=== PATIENT | male | born 1955 | race Caucasian/White ===

== ENCOUNTER 2023-04-16 06:00 | Outpatient (CLI) | payer MEDICARE, OTHER, BC, SELFPAY | END 2023-04-16 23:59 | disposition home or self-care (01) | LOC: SPT 04-17 08:51 | PROVIDERS: PCP Family Medicine; Visit Provider Nurse Practitioner | DX: Z46.89 Encounter for fitting and adjustment of other specified devices (principal); M17.12 Unilateral primary osteoarthritis, left knee | CPT/HCPCS: 97760; 99204; L1851 ==

== ENCOUNTER → 2023-04-16 12:55 | Outpatient (BNVA) | payer MEDICARE, OTHER, BC, SELFPAY | PROVIDERS: PCP Family Medicine; Referring Provider Family Medicine; Visit Provider Nurse Practitioner | DX: M17.12 Unilateral primary osteoarthritis, left knee; M25.562 Pain in left knee; G89.29 Other chronic pain; Z46.89 Encounter for fitting and adjustment of other specified devices | CPT/HCPCS: 73560; 73565; 97760; 99204; L1851 ==

== ENCOUNTER → 2023-05-02 10:48 | Outpatient (BNVA) | payer MEDICARE, OTHER, BC, SELFPAY | PROVIDERS: PCP Family Medicine; Visit Provider Nurse Practitioner | DX: M18.0 Bilateral primary osteoarthritis of first carpometacarpal joints (principal) | CPT/HCPCS: 20600; 73140; 99214; J2795; J3301 ==

== ENCOUNTER → 2023-08-15 07:52 | Outpatient (BNVA) | payer MEDICARE, OTHER, BC, SELFPAY | PROVIDERS: PCP Family Medicine; Visit Provider Nurse Practitioner | DX: M17.12 Unilateral primary osteoarthritis, left knee (principal); Z71.89 Other specified counseling | CPT/HCPCS: 20610; 99214 ==

== ENCOUNTER → 2023-08-22 08:04 | Outpatient (BNVA) | payer MEDICARE, OTHER, BC, SELFPAY | PROVIDERS: PCP Family Medicine; Visit Provider Nurse Practitioner | DX: M17.12 Unilateral primary osteoarthritis, left knee (principal) | CPT/HCPCS: 20610 ==

== ENCOUNTER → 2023-09-05 08:29 | Outpatient (BNVA) | payer MEDICARE, OTHER, BC, SELFPAY | PROVIDERS: PCP Family Medicine; Visit Provider Nurse Practitioner | DX: M17.12 Unilateral primary osteoarthritis, left knee | CPT/HCPCS: 20610; J7321 ==

== ENCOUNTER → 2023-09-19 08:17 | Outpatient (BNVA) | payer MEDICARE, OTHER, BC, SELFPAY | PROVIDERS: PCP Family Medicine; Visit Provider Nurse Practitioner | DX: M18.0 Bilateral primary osteoarthritis of first carpometacarpal joints (principal); M17.12 Unilateral primary osteoarthritis, left knee | CPT/HCPCS: 20600; 20610; 99213; J3301; J7321 ==